=== PATIENT | female | born 1975 | race Caucasian/White ===

== ENCOUNTER 2017-01-13 17:08 | Emergency (ER) | payer OTHER ==
--- NOTE | 2017-01-13 17:17 | PDOC ---
History of Present Illness - General History Source: Patient, Old Records Exam Limitations: No Limitations - History of Present Illness Initial Comments: 01/13/17 17:33 The patient is a 41 year old female with no significant past medical history who BIBA to the emergency department with left sided numbness today. The patient states that she was at work when she began to have neck pain and numbness. The patients numbness then began to radiate to the left side of her face and to her left upper extremity. She states that she has never experienced similar symptoms before. She did not report any alleviating or exacerbating symptoms. She denies any recent increased stress at home or at work. - General Chief Complaint: CVA/TIA Stated Complaint: FACIAL NUMBNESS Time Seen by Provider: 01/13/17 17:16 Past History - Psycho/Social/Smoking Cessation Hx Comments:: 01/13/17 17:34 GENERAL/CONSTITUTIONAL: No fever or chills. No weakness. HEAD, EYES, EARS, NOSE AND THROAT: No change in vision. No ear pain or discharge. No sore throat. CARDIOVASCULAR: No chest pain or shortness of breath. RESPIRATORY: No cough, wheezing, or hemoptysis. GASTROINTESTINAL: No nausea, vomiting, diarrhea or constipation. GENITOURINARY: No dysuria, frequency, or change in urination. MUSCULOSKELETAL: No joint or muscle swelling or pain. No neck or back pain. SKIN: No rash NEUROLOGIC: No headache, vertigo, loss of consciousness, or change in strength/ sensation. ENDOCRINE: No increased thirst. No abnormal weight change. HEMATOLOGIC/LYMPHATIC: No anemia, easy bleeding, or history of blood clots. ALLERGIC/IMMUNOLOGIC: No hives or skin allergy. - Past Medical History Allergies/Adverse Reactions: Allergies Allergy/AdvReac Type Severity Reaction Status Date / Time No Known Allergies Allergy Verified 01/13/17 17:15 Home Medications: Ambulatory Orders NK [No Known Home Medication] 01/13/17 Review of Systems - Review of Systems Able to Perform ROS?: Yes Comments:: 01/13/17 17:34 GENERAL: Awake, alert, and fully oriented, in no acute distress HEAD: No signs of trauma EYES: PERRLA, EOMI, sclera anicteric, conjunctiva clear ENT: Auricles normal inspection, hearing grossly normal, nares patent, oropharynx clear without exudates. Moist mucosa NECK: Normal ROM, supple, no lymphadenopathy, JVD, or masses LUNGS: Breath sounds equal, clear to auscultation bilaterally. No wheezes, and no crackles HEART: Regular rate and rhythm, normal S1 and S2, no murmurs, rubs or gallops ABDOMEN: Soft, nontender, normoactive bowel sounds. No guarding, no rebound. No masses EXTREMITIES: Normal range of motion, no edema. No clubbing or cyanosis. No cords, erythema, or tenderness SKIN: Warm, Dry, normal turgor, no rashes or lesions noted. NEUROLOGICAL: Mental status: The patient is oriented x3. Cranial nerves: Cranial nerves II through XII are intact Motor: The upper extremities are 5 over 5 in all muscle groups. The lower extremities are 5 over 5 in all muscle groups. Sensation: Sensation is intact to light touch throughout. Cerebellar: Utvkyi-xykamp-magt is normal in both upper extremities. Heel-knee- leyva is normal in both lower extremities. Reflexes: 2+ and symmetric in the upper and lower extremities. Gait: Normal. Heel and toe walking are normal. Tandem gait is normal. *Physical Exam - Vital Signs Last Vital Signs Temp Pulse Resp BP Pulse Ox 98.4 F 69 18 122/79 100 01/13/17 17:16 01/13/17 17:16 01/13/17 17:16 01/13/17 17:16 01/13/17 17:16 Heart Score/ECG Review - ECG Impressions Comment:: 01/13/17 18:23 Normal sinus rhythm. Normal ECG. Vent rate 76 bpm. Critical Care Time/[facility] Note - Medical Decision Making Note: 01/13/17 17:34 Documentation prepared by Luis Cornell, acting as medical physics researcher for Bárbara Forrester MD. Discharge Disposition - Referrals Referrals: Marquise Wall [Primary Care Provider] -
[2017-01-13 17:20] VITALS: TEMP 98.4; BMI 24.3
[2017-01-13 17:49] LABS: BASOPHIL 1.4 % (0-2.0); EOSINOPHIL 3.6 % (0-4.5); MCH 28.8 pg (25.7-33.7); MCHC 33.4 g/dl (32.0-36.0); MEAN CELL VOLUME 86.3 fl (80-96); MEAN PLT VOLUME 8.3 fl (7.5-11.1); NEUTROPHILS 54.8 % (42.8-82.8); PLATELET COUNT 193 K/MM3 (134-434); RDW 13.9 % (11.6-15.6); WHITE BLOOD COUNT 5.7 K/mm3 (4.0-10.0)
[2017-01-13 19:09] LABS: ALBUMIN 3.5 g/dl (3.4-5.0); ANION GAP 6 (8-16); BILIRUBIN,TOTAL 0.4 mg/dL (0.2-1.0); CO2 30 mmol/L (21-32); CREATININE 0.6 mg/dL (0.55-1.02); GLUCOSE,RANDOM 95 mg/dL (74-106); SGOT/AST 18 U/L (15-37); SGPT/ALT 21 U/L (12-78)
[2017-01-13 19:12] LABS: ALK PHOS 71 U/L (45-117); TOT PROT 6.6 g/dl (6.4-8.2); TROPONIN I < 0.02 ng/ml (0.00-0.05)
[2017-01-13] MEDS ORDERED: ACETAMINOPHEN 1000 MG/100 ML VIAL (NON FORMULARY) IVPB ONE (19:24)
[2017-01-13] MEDS ORDERED: SODIUM CHLORIDE 1,000 ML IV STA (19:24)
[2017-01-13] MEDS ORDERED: METOCLOPRAMIDE HCL INJECTION 10 MG/2 ML VIAL IVPB ONE (19:24)
[2017-01-13] MEDS ORDERED: ACETAMINOPHEN INJECTION 100 ML IVPB ONE (19:28)
[2017-01-13] MEDS ORDERED: METOCLOPRAMIDE HCL INJECTION 10 MG/2 ML VIAL ONE (19:28)
[2017-01-13 19:42] VITALS: BP 114/72; PULSE 77
[2017-01-13] MEDS ORDERED: KETOROLAC TROMETHAMINE 30 MG/1 ML VIAL IVPUSH ONE (20:06)
[2017-01-13] MEDS ORDERED: KETOROLAC TROMETHAMINE 30 MG/1 ML VIAL ONE (20:11)
--- NOTE | 2017-01-13 21:43 | PDOC ---
*Physical Exam - Vital Signs Last Vital Signs Temp Pulse Resp BP Pulse Ox 98.4 F 77 16 114/72 100 01/13/17 19:04 01/13/17 19:41 01/13/17 19:41 01/13/17 19:41 01/13/17 19:41 ED Treatment Course - LABORATORY CBC & Chemistry Diagram: 01/13/17 17:40 01/13/17 18:30 - ADDITIONAL ORDERS Additional order review: Laboratory Results 01/13/17 01/13/17 01/13/17 18:30 18:30 18:30 Sodium 140 Potassium 3.8 Chloride 104 Carbon Dioxide 30 Anion Gap 6 L BUN 11 Creatinine 0.6 Creat Clearance w eGFR > 60 Random Glucose 95 Calcium 8.0 L Total Bilirubin 0.4 AST 18 ALT 21 Alkaline Phosphatase 71 Creatine Kinase 70 CK-MB (CK-2) Cancelled Troponin I < 0.02 Total Protein 6.6 Albumin 3.5 Urine HCG, Qual Negative 01/13/17 17:40 Sodium Cancelled Potassium Cancelled Chloride Cancelled Carbon Dioxide Cancelled Anion Gap Cancelled BUN Cancelled Creatinine Cancelled Creat Clearance w eGFR Cancelled Random Glucose Cancelled Calcium Cancelled Total Bilirubin Cancelled AST Cancelled ALT Cancelled Alkaline Phosphatase Cancelled Creatine Kinase CK-MB (CK-2) Troponin I Total Protein Cancelled Albumin Cancelled Urine HCG, Qual 01/13/17 17:40 RBC 4.30 MCV 86.3 MCHC 33.4 RDW 13.9 MPV 8.3 Neutrophils % 54.8 Lymphocytes % 30.4 Monocytes % 9.8 Eosinophils % 3.6 Basophils % 1.4 - RADIOLOGY Radiology Studies Ordered: Category Date Time Status HEAD CT WITHOUT CONTRAST [CT] Stat CT Scan 01/13/17 20:06 Taken - Medications Given in the ED: ED Medications Discontinued Medications Generic Name Dose Route Start Last Admin Trade Name Freq PRN Reason Stop Dose Admin Acetaminophen 1,000 mg 01/13/17 19:24 01/13/17 19:41 Ofirmev Injection - IVPB 01/13/17 19:25 1,000 mg ONCE ONE Administration Sodium Chloride 1,000 mls @ 1,000 mls/hr 01/13/17 19:24 01/13/17 19:40 Normal Saline - IV 01/13/17 20:23 1,000 mls/hr ASDIR STA Administration Ketorolac Tromethamine 30 mg 01/13/17 20:06 01/13/17 20:09 Toradol Injection - IVPUSH 01/13/17 20:07 30 mg ONCE ONE Administration Metoclopramide HCl 10 mg 01/13/17 19:24 01/13/17 19:41 Reglan Injection - IVPB 01/13/17 19:25 10 mg ONCE ONE Administration Medical Decision Making - Medical Decision Making 01/13/17 21:37 Sign-out received from outgoing Emergency Physician Dr. Forrester Pt interviewed and examined Ancillary studies reviewed Case discussed in detail with oncoming Emergency Physician including history, physical exam and ancillary studies. Vital Signs Temp Pulse Resp BP Pulse Ox 98.4 F 77 16 114/72 100 01/13/17 19:04 01/13/17 19:41 01/13/17 19:41 01/13/17 19:41 01/13/17 19:41 41-year-old female with no medical history but family history significant for migraines presents with posterior head pressure and left-sided paresthesias. Patient's labs are reviewed and was negative. Patient reports some relief with Tylenol, Reglan and Toradol. Head CT was obtained and shows no acute findings. Patient reports feeling better like to go home. At this time, I do not suspect a stroke. This may have potentially been a presentation of migraines. However, he shouldn't states that she will follow with her primary care physician. Return precautions given. I discussed the physical exam findings, ancillary test results and final diagnoses with the patient. I answered all of the patient's questions. The patient was satisfied with the care received and felt comfortable with the discharge plan and treatment plan. The patient will call their primary care physician within 24 hours to arrange follow-up and will return to the Emergency Department with any new, persistant or worsening symptoms. *DC/Admit/Observation/Transfer Diagnosis at time of Disposition: Headache Qualifiers: Headache type: unspecified Headache chronicity pattern: acute headache Intractability: not intractable Qualified Code(s): R51 - Headache - Discharge Dispostion Disposition: HOME Condition at time of disposition: Improved Admit: No - Referrals Referrals: Marquise Wall [Primary Care Provider] - - Patient Instructions Printed Discharge Instructions: DI for Headache Additional Instructions: Take 500 mg naproxen every 12 hours as needed for symptoms/headache You may take 10 mg reglan every 8 hours as needed for headache/nausea. Drink plenty of fluids and rest. Your head CT is negative for acute pathology. Follow up with your doctor. - Post Discharge Activity
--- NOTE | 2017-01-14 12:38 | EKG ---
Test Reason : Blood Pressure : / mmHG Vent. Rate : 076 BPM Atrial Rate : 076 BPM P-R Int : 162 ms QRS Dur : 090 ms QT Int : 420 ms P-R-T Axes : 039 -10 014 degrees QTc Int : 472 ms NORMAL SINUS RHYTHM NORMAL ECG NO PREVIOUS ECGS AVAILABLE Confirmed by AARTI ROSAS MD ([id number]) on 01/14/2017 12:37:32 PM Referred By: Confirmed By:AARTI ROSAS MD
== END 2017-01-13 22:25 | disposition home or self-care (01) ==
LOC: JER 17:08
PROC: 3E033NZ Introduction of Analgesics, Hypnotics, Sedatives into Peripheral Vein, Percutaneous Approach (ICD-10-PCS; principal; 2017-01-13)
PROC: 3E0333Z Introduction of Anti-inflammatory into Peripheral Vein, Percutaneous Approach (ICD-10-PCS; 2017-01-13)
PROC: 3E033GC Introduction of Other Therapeutic Substance into Peripheral Vein, Percutaneous Approach (ICD-10-PCS; 2017-01-13)
DX: R20.8 Other disturbances of skin sensation (principal); R51 Headache
CPT/HCPCS: 36415; 70450-TC; 80053; 82550; 84484; 84703; 85025; 93005; 93010; 96374; 96375; 99285-25